=== PATIENT | female | born 1975 | race American Indian/Alaskan Native ===

== ENCOUNTER 2019-04-06 16:31 | Emergency (ER) | payer MEDICAID ==
[2019-04-06] MEDS ORDERED: Sodium Chloride 0.9% 1,000 ML IV ONE (16:33)
[2019-04-06 17:16] LABS: ANION GAP 14.2; CHLORIDE,CL 110 mmol/L (101-111); SODIUM,NA 138 mmol/L (135-145)
--- NOTE | 2019-04-06 17:16 | EDM.PDOC ---
ED HPI GENERAL MEDICAL PROBLEM - General Stated Complaint: [id number] Time Seen by Provider: 04/06/19 17:02 Source of Information: Reports: Patient History Limitations: Reports: No Limitations - History of Present Illness INITIAL COMMENTS - FREE TEXT/NARRATIVE: This 44 yo female patient reports to the ED from the [facility] due to neck pain, bilateral shoulder pain, chest pain and "just not feeling well." The patient reports she was seen by Dr. Robles yesterday and had an injection of Toradol. The patient reports she does have an appointment with neurology next week due to the chronic headaches. The patient reports the Toradol helped for about 2 hours. The patient reports she has had worsening symptoms over the past 2 months. The patient did attempt to get back into Dr. Robles's office, but was advised to come to the ED. Onset: Gradual Duration: Constant, Getting Worse Location: Reports: Head, Neck, Chest, Abdomen, Back Quality: Reports: Ache, Sharp Severity: Moderate Improves with: Reports: None Worsens with: Reports: None Context: Reports: Other Associated Symptoms: Reports: No Other Symptoms - Related Data Allergies Allergy/AdvReac Type Severity Reaction Status Date / Time bupivacaine Allergy Seizure Verified 04/06/19 16:52 ibuprofen Allergy Indigestion Verified 04/06/19 16:53 Home Meds: Home Meds . 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 ASSOCIATE BUYER History: Reports: Other (See Below) Other ASSOCIATE BUYER History: Recurrent benign breast lumps Neurological History: Reports: Seizure, Other (See Below) Other Neuro History: first seizure in ER this admission Other Oncologic History: benign lumps in right breast Other Dermatologic History: chroinc acess. chronic abcess - Infectious Disease History Infectious Disease History: Reports: Chicken Pox - Past Surgical History GI Surgical History: Reports: Cholecystectomy Female Surgical History: Reports: Section Social & Family History - Family History Family Medical History: Noncontributory - Tobacco Use Smoking Status *Q: Current Every Day Smoker Years of Tobacco use: 20 Packs/Tins Daily: 0.5 Used Tobacco, but Quit: No Second Hand Smoke Exposure: Yes - Caffeine Use Caffeine Use: Reports: None - Recreational Drug Use Recreational Drug Use: No - Living Situation & Occupation Living situation: Reports: with Family ED ROS GENERAL - Review of Systems Review Of Systems: ROS reveals no pertinent complaints other than HPI. ED EXAM, GENERAL - Physical Exam Exam: See Below Exam Limited By: No Limitations General Appearance: Alert, WD/WN, Moderate Distress Eye Exam: Bilateral Eye: EOMI, Normal Inspection, PERRL Ears: Normal External Exam, Normal Canal, Hearing Grossly Normal, Normal TMs Nose: Normal Inspection, Normal Mucosa, No Blood Throat/Mouth: Normal Inspection, Normal Lips, Normal Teeth, Normal Gums, Normal Oropharynx, Normal Voice, No Airway Compromise Head: Atraumatic, Normocephalic Neck: Limited Range of Motion, Tender Lateral Respiratory/Chest: No Respiratory Distress, Lungs Clear, Normal Breath Sounds, No Accessory Muscle Use, Chest Non-Tender Cardiovascular: Normal Peripheral Pulses, Regular Rate, Rhythm, No Gallop, No JVD, No Murmur, No Rub GI/Abdominal: Normal Bowel Sounds, Soft, Non-Tender, No Organomegaly, No Distention, No Abnormal Bruit, No Mass (Female) Exam: Deferred Rectal (Female) Exam: Deferred Back Exam: Normal Inspection, Full Range of Motion, NT Extremities: Normal Inspection, Normal Range of Motion, Non-Tender, No Pedal Edema, Normal Capillary Refill, Other (upper extremity edema) Neurological: Alert, Oriented, CN II-XII Intact, Normal Cognition, Normal Gait, Normal Reflexes, No Motor/Sensory Deficits Psychiatric: Normal Affect, Normal Mood Skin Exam: Warm, Dry, Intact, Normal Color, No Rash Lymphatic: No Adenopathy Course - Vital Signs Last Recorded V/S: Last Vital Signs Temp 36.3 C 04/06/19 16:56 Pulse 67 04/06/19 18:23 Resp 16 04/06/19 18:23 BP 141/87 H 04/06/19 18:23 Pulse Ox 100 04/06/19 18:23 - Orders/Labs/Meds Orders: Active Orders 24 hr Category Date Time Status EKG Documentation Completion [RC] URGENT Care 04/06/19 16:38 Active Cervical Spine wo Cont [CT] Urgent Exams 04/06/19 17:31 Taken Medication Orders Hydromorphone HCl (Dilaudid) 1 mg IVPUSH ONETIME ONE Stop: 04/06/19 18:56 Labs: Laboratory Tests 04/06/19 04/06/19 04/06/19 Range/Units 16:44 16:47 16:47 WBC 6.8 (5.0-10.0) 10^3/uL RBC 4.75 (4.2-5.4) 10^6/uL Hgb 14.1 (12.0-16.0) g/dL Hct 42.4 (37.0-47.0) % MCV 89.3 D (80-100) fL MCH 29.7 (27.0-34.0) pg MCHC 33.3 (33.0-35.0) g/dL Plt Count 270 (150-450) 10^3/uL Neut % (Auto) 55.5 (42.2-75.2) % Lymph % (Auto) 29.6 (20.5-50.1) % [place] % (Auto) 9.9 H (2-8) % Eos % (Auto) 4.7 H (1.0-3.0) % Baso % (Auto) 0.3 (0.0-1.0) % Sodium 138 (135-145) mmol/L Potassium 4.2 (3.6-5.0) mmol/L Chloride 110 (101-111) mmol/L Carbon Dioxide 18.0 L (21.0-31.0) mmol/L Anion Gap 14.2 BUN 21 H (7-18) mg/dL Creatinine 0.7 (0.6-1.3) mg/dL Est Cr Clr Drug Dosing 84.84 mL/min Estimated GFR (MDRD) > 60 BUN/Creatinine Ratio 30.00 Glucose 107 H (74-105) mg/dL Calcium 8.1 L (8.4-10.2) mg/dl Total Bilirubin 0.5 (0.2-1.0) mg/dL AST 24 (10-42) IU/L ALT 24 (10-60) IU/L Alkaline Phosphatase 59 (42-121) IU/L Troponin I < 0.02 (0.00-0.02) ng/ml Total Protein 6.9 (6.7-8.2) g/dl Albumin 3.7 (3.2-5.5) g/dl Globulin 3.2 Albumin/Globulin Ratio 1.16 Urine Color Yellow (YELLOW) Urine Appearance Clear (CLEAR) Urine pH 6.0 (5.0-9.0) Ur Specific [place] 1.025 (1.005-1.030) Urine Protein Negative (NEGATIVE) Urine Glucose (UA) Negative (NEGATIVE) Urine Ketones Negative (NEGATIVE) Urine Occult Blood Large H (NEGATIVE) Urine Nitrite Negative (NEGATIVE) Urine Bilirubin Negative (NEGATIVE) Urine Urobilinogen 0.2 (0.2-1.0) mg/dL Ur Leukocyte Esterase Negative (NEGATIVE) Urine RBC 5-10 H /HPF Urine WBC 0-5 (0-5/HPF) /HPF Ur Epithelial Cells Moderate H (NOT SEEN) /HPF Urine Bacteria Few (0-FEW/HPF) /HPF Meds: Medications Generic Name Dose Route Start Last Admin Trade Name Freq PRN Reason Stop Dose Admin Hydromorphone HCl 1 mg 04/06/19 18:55 Dilaudid IVPUSH 04/06/19 18:56 ONETIME ONE Discontinued Medications Generic Name Dose Route Start Last Admin Trade Name Freq PRN Reason Stop Dose Admin Sodium Chloride 1,000 mls @ 999 mls/hr 04/06/19 16:33 04/06/19 16:52 Normal Saline IV 04/06/19 17:33 999 mls/hr .BOLUS ONE Administration Methylprednisolone Sodium Succinate 125 mg 04/06/19 18:50 Solu-Medrol IM 04/06/19 18:51 ONETIME ONE - Re-Assessments/Exams Free Text/Narrative Re-Assessment/Exam: 04/06/19 17:32 The patient was advised of the lab results. An order was placed for a CT of her C-spine due to the increased neck pain. Departure - Departure Time of Disposition: 18:56 Disposition: Home, Self-Care 01 Condition: Fair Clinical Impression: Neck pain Headache Qualifiers: Headache type: unspecified Headache chronicity pattern: chronic headache Intractability: intractable Qualified Code(s): R51 - Headache - Discharge Information *PRESCRIPTION DRUG MONITORING PROGRAM REVIEWED*: Not Applicable *COPY OF PRESCRIPTION DRUG MONITORING REPORT IN PATIENT JENY: Not Applicable Instructions: General Headache Without Cause, Nonspecific Chest Pain, Easy-to- Read, Musculoskeletal Pain Forms: ED Department Discharge Care Plan Goals: The patient was advised of the examination, lab, EKG and CT results during the visit. The patient was given an injection of steroids and a dose of IV Dilaudid for pain. The patient was discharged with a script for Prednisone (20 mg) #10 to take 2 by mouth daily for 5 days. The patient was encouraged to follow-up with her primary care facility for continued evaluation after the 5 days of Prednisone. If the patient has any additional symptoms or concerns, the patient should either return to the emergency department or visit her primary care facility. - My Orders Last 24 Hours: My Active Orders 04/06/19 16:38 EKG Documentation Completion [RC] URGENT 04/06/19 17:31 Cervical Spine wo Cont [CT] Urgent - Assessment/Plan Last 24 Hours: My Active Orders 04/06/19 16:38 EKG Documentation Completion [RC] URGENT 04/06/19 17:31 Cervical Spine wo Cont [CT] Urgent
[2019-04-06 18:23] VITALS: BP 141/87; PULSE 67
[2019-04-06] MEDS ORDERED: methylPREDNISolone Sodium Succinate 125 MG/2 ML SDV IM ONE (18:50)
[2019-04-06] MEDS ORDERED: HYDROmorphone 1 MG/ML Syringe IVPUSH ONE (18:55)
[2019-04-06] MEDS ORDERED: methylPREDNISolone Sodium Succinate 125 MG/2 ML SDV IVPUSH ONE (19:11)
== END 2019-04-06 19:26 | disposition home or self-care (01) ==
LOC: DL.ED 16:31
DX: M54.2 Cervicalgia (principal); R51 Headache; F17.210 Nicotine dependence, cigarettes, uncomplicated; Z88.8 Allergy status to other drugs, medicaments and biological substances
CPT/HCPCS: 36415; 72125; 80053; 81001; 84484; 85025; 93005; 96361; 96374; 96375; 99284; J1170; J2930; J7030

== ENCOUNTER 2021-02-10 12:13 | Emergency (ER) | payer MEDICAID | END 2021-02-10 12:30 | disposition left against medical advice (07) | LOC: DL.ED 12:13 | DX: Z53.21 Procedure and treatment not carried out due to patient leaving prior to being seen by health care provider (principal) ==

== ENCOUNTER 2022-03-17 12:10 | Emergency (ER) | payer MEDICAID ==
[2022-03-17 12:43] VITALS: BP 142/99
[2022-03-17 14:05] VITALS: PULSE 95
== END 2022-03-17 16:19 | disposition home or self-care (01) ==
LOC: DL.ED 12:10
DX: K04.7 Periapical abscess without sinus (principal); F17.210 Nicotine dependence, cigarettes, uncomplicated; Z79.899 Other long term (current) drug therapy; Z90.49 Acquired absence of other specified parts of digestive tract; Z88.6 Allergy status to analgesic agent; Z88.4 Allergy status to anesthetic agent
CPT/HCPCS: 99282

== ENCOUNTER 2023-08-30 13:48 | Emergency (ER) | payer MEDICAID ==
[2023-08-30] MEDS ORDERED: Sodium Chloride 0.9% 1,000 ML IV ONE (14:00)
[2023-08-30] MEDS ORDERED: Ondansetron 4 MG/2 ML SDV IV ONE (14:00)
[2023-08-30 14:01] VITALS: BP 117/81; PULSE 97
[2023-08-30] MEDS ORDERED: HYDROmorphone 1 MG/ML Syringe IVPUSH ONE ×2 (14:01→16:02)
[2023-08-30] MEDS ORDERED: Sodium Chloride 0.9% 10 ML Syringe FLUSH PRN (14:01)
[2023-08-30 14:08] LABS: BASOPHILS PERCENT AUTO 0.2 % (0.0-1.0); EOSINOPHILS PERCENT AUTO 1.1 % (1.0-3.0); HEMOGLOBIN 15.8 g/dL (12.0-16.0); MEAN CORPUSCULAR HEMOGLOBIN 31.5 pg (27.0-34.0); MEAN CORPUSCULAR HGB CONC 35.1 g/dL (33.0-35.0); MEAN CORPUSCULAR VOLUME 89.6 fL (80-100); NEUTROPHILS PERCENT AUTO 76.7 % (42.2-75.2); PLATELET COUNT,PLT 304 10^3/uL (150-450); RED BLOOD CELL COUNT 5.02 10^6/uL (4.2-5.4); WHITE BLOOD CELL COUNT,WBC 11.4 10^3/uL (5.0-10.0)
[2023-08-30 14:30] LABS: LACTIC ACID 1.1 mmol/L (0.4-2.0)
[2023-08-30 14:48] LABS: A/G RATIO 0.67; ALBUMIN 3.3 g/dL (3.4-5.0); ANION GAP 13.3 mEq/L (7-13); BILIRUBIN TOTAL 0.7 mg/dL (0.2-1.0); BUN/CREATININE RATIO 14.7 (No establ ref range); CREATININE 0.95 mg/dL (0.55-1.02); EST CRCL DRUG DOSING (CG) 59.91 mL/min; POTASSIUM,K 4.3 mmol/L (3.5-5.1); PROTEIN TOTAL,TP 8.2 g/dL (6.4-8.2)
[2023-08-30 15:25] LABS: APPEARANCE,URINE SLIGHTLY CLOUDY (CLEAR); BILIRUBIN,URINE NEGATIVE (NEGATIVE); COLOR,URINE DARK YELLOW (YELLOW); GLUCOSE,URINE NEGATIVE (NEGATIVE); KETONES,URINE NEGATIVE (NEGATIVE); LEUKOCYTE ESTERASE,URINE NEGATIVE (NEGATIVE); NITRITE,URINE NEGATIVE (NEGATIVE); OCCULT BLOOD,URINE NEGATIVE (NEGATIVE); PROTEIN,URINE TRACE (NEGATIVE); UROBILINOGEN,URINE 0.2 mg/dL (0.2-1.0)
[2023-08-30 15:30] LABS: EPITHELIAL CELLS,URINE MANY /HPF (NOT SEEN); MUCUS,URINE MODERATE /LPF (NOT SEEN)
[2023-08-30 15:31] LABS: AMORPHOUS SEDIMENT,URINE FEW /HPF (NOT SEEN); BACTERIA,URINE MANY /HPF (0-FEW/HPF)
[2023-08-30 15:32] LABS: RBC,URINE 0-5 /HPF (0-5); WBC,URINE 0-5 /HPF (0-5/HPF)
[2023-08-30] MEDS ORDERED: Take Home: Ondansetron 4 MG Tab.DIS, 5 Tab Pack PO ONE (18:27)
[2023-08-30] MEDS ORDERED: Take Home: Acetaminophen/HYDROcodone 325-5 MG, 5 Tab Pack PO ONE (18:27)
[2023-08-30] MEDS ORDERED: Ondansetron 4 MG/2 ML SDV ONE (18:42)
== END 2023-08-30 19:02 | disposition home or self-care (01) ==
LOC: DL.ED 13:48
DX: R10.2 Pelvic and perineal pain (principal); D25.9 Leiomyoma of uterus, unspecified; Z88.8 Allergy status to other drugs, medicaments and biological substances
CPT/HCPCS: 36415; 74176; 76856; 80053; 81001; 83605; 85025; 96361; 96374; 96375; 96376; 99284; 99284-25; A9270-GY; J1170; J2405; J3490; J7030; Q0162

== ENCOUNTER 2023-08-31 14:00 | Emergency (ER) | payer MEDICAID ==
[2023-08-31 14:14] VITALS: BP 114/75; PULSE 82
== END 2023-08-31 14:14 | disposition left against medical advice (07) ==
LOC: DL.ED 14:00
DX: Z53.21 Procedure and treatment not carried out due to patient leaving prior to being seen by health care provider (principal)

== ENCOUNTER 2023-09-01 15:03 | Emergency (ER) | payer MEDICAID ==
[2023-09-01 15:20] VITALS: BP 97/69; PULSE 68
== END 2023-09-01 15:35 | disposition left against medical advice (07) ==
LOC: DL.ED 15:03
DX: Z53.21 Procedure and treatment not carried out due to patient leaving prior to being seen by health care provider (principal)

== ENCOUNTER 2023-09-13 15:08 | Emergency (ER) | payer MEDICAID ==
[2023-09-13 15:47] VITALS: BP 125/93; PULSE 104
== END 2023-09-13 17:20 | disposition home or self-care (01) ==
LOC: DL.ED 15:08
DX: S93.401A Sprain of unspecified ligament of right ankle, initial encounter (principal); F17.210 Nicotine dependence, cigarettes, uncomplicated; E66.9 Obesity, unspecified; Z68.32 Body mass index [BMI] 32.0-32.9, adult; Z88.6 Allergy status to analgesic agent; Z88.4 Allergy status to anesthetic agent; X50.1XXA Overexertion from prolonged static or awkward postures, initial encounter; Y93.55 Activity, bike riding
CPT/HCPCS: 73610-RT; 99282; 99283

== ENCOUNTER 2023-10-27 09:44 | Emergency (ER) | payer MEDICAID ==
[2023-10-27 10:19] VITALS: BP 113/83; PULSE 80
[2023-10-27] MEDS ORDERED: Ketorolac 30 MG/ML SDV IM ONE (10:22)
== END 2023-10-27 10:35 | disposition home or self-care (01) ==
LOC: DL.ED 09:44
DX: N94.3 Premenstrual tension syndrome (principal); F17.210 Nicotine dependence, cigarettes, uncomplicated; Z88.4 Allergy status to anesthetic agent; Z88.6 Allergy status to analgesic agent
CPT/HCPCS: 96372; 99283; J1885